=== PATIENT | male | born 1990 | race Caucasian/White ===

== ENCOUNTER 2019-07-05 13:32 | Day surgery (SDC) | payer SELFPAY ==
[~2019-07-05] VITALS: Ht 182.9 cm; Wt 75.0 kg
[2019-07-05 17:20] VITALS: BP 109/60; PULSE 78
--- NOTE | 2019-07-05 17:20 | NUR ---
Received patient from endoscopy. Very drowsy. VSS.
[2019-07-05 17:35] VITALS: BP 105/61; PULSE 68
[2019-07-05 17:50] VITALS: BP 103/56; PULSE 67; TEMP 98.3
[2019-07-05 18:05] VITALS: BP 118/74; PULSE 70
[2019-07-05 18:20] VITALS: BP 99/60; PULSE 71
--- NOTE | 2019-07-05 18:40 | NUR ---
VSS. Lungs clear to auscultation. Swallowing water without difficulty. No complaints. Dismissed to home with family.
== END 2019-07-05 18:40 | disposition home or self-care (01) ==
LOC: COL.ER 13:32 → SDCO 17:11
DX: T18.128A Food in esophagus causing other injury, initial encounter (principal)
CPT/HCPCS: J1610; J2060; J2250; J3010